=== PATIENT | male | born 1975 | race Caucasian/White ===

== ENCOUNTER 2025-04-15 21:06 | Emergency (ER) | payer OTHER, MEDICAID ==
[2025-04-15] MEDS ORDERED: Lidocaine 1% w/Epinephrine 1:100K 20 ML VIAL ONE (21:49)
== END 2025-04-16 00:05 ==
LOC: NAV ERS 21:06
DX: S01.20XA Unspecified open wound of nose, initial encounter (principal); S01.81XA Laceration without foreign body of other part of head, initial encounter; E78.5 Hyperlipidemia, unspecified; Z79.899 Other long term (current) drug therapy; W07.XXXA Fall from chair, initial encounter
CPT/HCPCS: 12013; 70486

== ENCOUNTER 2025-04-20 12:35 | Emergency (ER) | payer OTHER, MEDICAID ==
[2025-04-20] MEDS ORDERED: Lidocaine/Transparent Dressing 1 EACH KIT ONE (13:24)
[2025-04-20] MEDS ORDERED: Bacitracin 1 PK ONE (14:27)
== END 2025-04-20 15:28 ==
LOC: NAV ERS 12:35
DX: S01.01XA Laceration without foreign body of scalp, initial encounter (principal); E78.5 Hyperlipidemia, unspecified; Z79.899 Other long term (current) drug therapy; W22.8XXA Striking against or struck by other objects, initial encounter
CPT/HCPCS: 12001; 70450; 72125